=== PATIENT | male | born 1975 | race Caucasian/White ===

== ENCOUNTER 2017-05-03 12:34 | Day surgery (SDC) | payer OTHER ==
[~2017-05-03] VITALS: Ht 190.5 cm; Wt 173.3 kg
[2017-05-03] VITALS (10 sets, daily range): BP systolic 120–150; BP diastolic 60–92; PULSE 60–88; RESP 10–22; O2SAT 90–97
[~2017-05-03 12:34] MED LIST: ALBU8.5H2 INHALATION; BECL8.7A6 INHALATION; IBUP-1827 PO
[2017-05-03] MEDS ORDERED: MetoCLOpramide 5 mg/mL 2 mL Inj ONE (12:35)
[2017-05-03] MEDS ORDERED: Ondansetron 2 mg/mL 2 mL Inj ONE (12:35)
[2017-05-03] MEDS ORDERED: Dexamethasone 4 mg/mL Inj ONE (12:35)
[2017-05-03] MEDS ORDERED: fentaNYL-PF 50 mCg/mL 2 mL Inj ONE (12:35)
[2017-05-03] MEDS ORDERED: Propofol 10,000 mCg/mL 20 mL Inj ONE (12:35)
[2017-05-03] MEDS ORDERED: Lactated Ringer's 1,000 ML IV ONE (13:11)
[2017-05-03] MEDS ORDERED: HYDROcodone-APAP 7.5-325 mg Tablet PO PRN (13:20)
[2017-05-03] MEDS ORDERED: Lactated Ringer's 1,000 ML IV SCH (16:17)
[2017-05-03] MEDS ORDERED: Lactated Ringer's 500 ML IV PRN (16:17)
--- NOTE | 2017-05-03 16:19 | PCM.HPANE ---
Patient Data Surgeon Admitting Provider: Attending Provider:Shelton Tolliver DO Primary Care Physician:Pablito Ramirez MD Other Provider:Jovita García Anesthesia Reason for Visit Left Small Finger Middle Pip Joint Fracture Ht/WT & BMI Height (Feet): 6 Height (Inches): 3 Weight (Kilograms): 173.3 Body Mass Index 47.00 Allergies Coded Allergies: No Known Allergies (Unverified , 05/02/17) Past Anesthesia History Anesthesia History: Denies:: Abnormal Airway, Anesthesia Reactions, Difficult Intubation, Fam Anesthesia Reaction, Fam Malignant Hypertherm, Malignant Hyperthermia Diabetes History Hx Diabetes?: No Medications Home Meds Incl Beta Dea: No Reported Medications Beclomethasone Dipropionate (Qvar)8.7 Gm Aer.w.adap1 Puff INHALATION BID #8.7 GM 05/02/17 Albuterol HFA (Proair HFA)8.5 Gm Hfa.aer.ad2 Puffs INHALATION Q4H PRN For Shortness of Breath #1 INHALER 05/02/17 Ibuprofen 600 Mg [id number] Mg PO QID PRN For Pain Ref 0 05/02/17 History History of ENT Problems?: No HEENT History: Denies:: Abnormal Airway Cataracts Difficult Intubation Dysphagia Glaucoma Hearing Problem Sinus Problem TMJ Denture Type: None Teeth Condition: Within Normal Limits Hx of Heart Problems?: No Cardiovascular History: Denies:: AICD Abdominal Aortic Aneurism Atrial Fibrillation Cardiac Surgery Chest Pain Congestive Heart Failure Coronary Artery Disease Edema Heart Murmur Hypertension Irregular Heartbeat Pacemaker Peripheral Vascular Rheumatic Fever Thrombophlebitis Valvular Heart Disease Hx of Respiratory Problem?: Yes Respiratory History: Positive for:: Asthma Use of C-PAP Machine (BiPap) Use of Inhalers / NEBS Denies:: COPD Chest Surgery Cough Dyspnea Emphysema Hemoptysis Oxygen Administration Pneumonia Pulmonary Embolism Tuberculosis Hx Neurologic Problems?: No Neurological History: Denies:: Alzheimer's Disease CVA Dementia Dizziness Headaches Multiple Sclerosis Parkinson's Disease Peripheral Neuropathy Seizures TIA Hx of GI Problems?: No Gastrointestinal History: Denies:: Cirrhosis Diverticulitis Gall Bladder Disease Gastroesphageal Reflux Gastrointestinal Bleeding Heartburn Hepatitis Hiatal Hernia Liver Disease Rectal Bleeding Hx of Problems?: No Genitourinary History: Denies:: HX of Hemodialysis Kidney Stones Urinary Tract Infection HX of Peritoneal Dialysis: No Male Hx: Denies:: Prostate Problems Scrotal Mass Testicular Surgery Skin History: Denies:: History Skin Disorders? Pressure Ulcers Hx Musculoskeletal Problems?: Yes Musculoskeletal History: Positive for:: Musculoskeletal Trauma (left small finger fx current admission problem) Denies:: Back Injury Degenerative Joint Fibromyalgia Joint Replacement Myasthenia Gravis Osteoarthritis Rheumatoid Arthritis Systemic Lupus Hx of Psycho/Social Problems?: No Psycho Social History: Denies:: Anxiety Bipolar Disorder Hx Depression Suicide Attempt Hx Surgeries?: Yes (knee arthroscopy) Hx Any Other Health Problems?: Yes Other History: Denies:: Cancer Endocrine Disease Hospitalization Thyroid Disease History Blood Transfusions: Denies:: Accept Blood Products? Blood Transfuse Reaction Blood Transfusions Hx Diabetes: No Stop/Bang S-Snoring: Do You Snore Loudly: No T-Tired: feel tired, fatigued: No O-Obsered: Observed not breath: No P-Blood Pressure: treated: No B- Body Mass Index > 35 kg/m2: Yes A- Age over 50: No N- Neck Large Circumference: Yes G- Gender Male: Yes ALMA Total Score: 3 Risk Assessment Category Category 1A: Patient has history of documented sleep apnea, and HAS NOT received any narcotic, sedative or anesthesia administration during this stay. Category 1B: Patient has history of documented sleep apnea, and HAS received any narcotic , sedative or anesthesia administration during this stay Category 2: Patient has SUSPECTED Obstructive Sleep Apnea, and HAS received any narcotic , sedative or anesthesia administration during this stay. Category 3: Patient has SUSPECTED Obstructive Sleep Apnea and HAS NOT received narcotic, sedative or anesthesia administration during this stay. Category 4: Outpatient in Procedural Areas with known sleep apnea or who screen positive for High Risk via the STOP/BANG questionnaire. Exam Exam Vital Signs Vital Signs Date Time Temp Pulse Resp B/P Pulse Ox O2 Delivery O2 Flow Rate FiO2 05/03/17 13:20 36.2 60 18 121/69 94 Room Air 05/03/17 13:15 CPAP/BIPAP General Appearance: Alert, Oriented X3, Cooperative, No Acute Distress HEENT/AIRWAY: MP 2, Neck Movement (FROM, large neck circumference), Mouth Opening (3 FBMO) Lungs: Clear to Auscultation, Normal Air Movement Heart: Exam Unremarkable, Regular Rate/Rhythm, No Murmurs/Rubs/Gallops Meds/Labs/Diagnostics Admission Meds Current Medications Lactated Ringer's (Lr) 1,000 ml @ ud STK-MED ONCE IV Last administered on t 13:11; Start 05/03/17 at 13:11; Stop 05/03/17 at 13:12; Status DC Plan Impression Patient chart reviewed, patient interviewed and anesthestic plan with risks, benefits, and alternatives discussed, and informed consent obtained. NPO per Anesth. Guidelines: Yes ASA Physical Status: ASA3 Severe Disease (BMI 47) Anesthetic Plan: GA Bene/Risks/Altern/Consents: Yes HP Complete Prior to Induction: Yes Jamel Perkins MD May 03, 2017 14:52
[2017-05-03] MEDS ORDERED: Ondansetron 2 mg/mL 2 mL Inj IVPUSH PRN (16:20)
[2017-05-03] MEDS ORDERED: Atropine 0.4 mg/mL Inj IVPUSH PRN (16:20)
[2017-05-03] MEDS ORDERED: EPHEDrine Sulfate 50 mg/mL Inj IVPUSH PRN (16:20)
[2017-05-03] MEDS ORDERED: Labetalol 5 mg/mL 4 mL Inj IV PRN (16:20)
[2017-05-03] MEDS ORDERED: Phenylephrine 10,000 mCg/mL Inj IVPUSH PRN (16:20)
[2017-05-03] MEDS ORDERED: HYDROmorphone 1 mg/mL Inj IVPUSH PRN (16:20)
[2017-05-03] MEDS ORDERED: MetoCLOpramide 5 mg/mL 2 mL Inj IVPUSH PRN (16:20)
[2017-05-03] MEDS ORDERED: Lidocaine 1%-Epi 1:100,000 20 mL Inj INFILTRATE ONE (16:23)
--- NOTE | 2017-05-03 17:51 | PCM.ANEP1 ---
Post Anesthesia PACU Phase 1 Assessment Vital Signs Vital Signs Date Time Temp Pulse Resp B/P Pulse Ox O2 Delivery O2 Flow Rate FiO2 05/03/17 17:47 37.4 79 22 120/60 95 Simple Mask 10 05/03/17 17:39 36.9 88 19 150/92 94 Simple Mask 10 05/03/17 13:20 36.2 60 18 121/69 94 Room Air 05/03/17 13:15 CPAP/BIPAP Anesthetic Administered: GA Level of Alertness: Awake, talking SOLIMAN's with Equal Strength: Yes Pain: No Nausea or Vomiting: No CV Function & Hydration Stable: No Airway Device: Oxygen Delivery: Simple Mask Lungs: Clear to Auscultation, Normal Air Movement Dermatome Level: Full Sensation PACU Phase 2 Assessment Complications: No Follow up Care: N/A Patient Instructions Provided: N/A Jamel Perkins MD May 03, 2017 17:51
[2017-05-03] MEDS: fentaNYL-PF 50 mCg/mL 2 mL Inj IVPUSH PRN ×2 (17:58→18:23)
--- NOTE | 2017-05-06 08:52 | OP ---
[address] [id number] OPERATIVE REPORT PATIENT: CELINE CLEARY : 1975 MR#: [id number] ADMIT: 05/03/2017 JOB ID: [id number] DATE OF SURGERY: 05/03/2017 PREOPERATIVE DIAGNOSIS(ES): Left small finger proximal interphalangeal fracture dislocation. POSTOPERATIVE DIAGNOSIS(ES): Left small finger proximal interphalangeal fracture dislocation. PROCEDURE: Open reduction, internal fixation of the left middle phalanx articular fracture involving the proximal interphalangeal joint. SURGEON: Shelton Tolliver D.O. ANESTHESIA: General. HISTORY: The patient is a pleasant 41-year-old male that tripped over his goose and landed onto his left hand. He sustained a left small finger proximal interphalangeal joint fracture dislocation involving the middle phalanx. This happened two and half weeks prior to him seeking any treatment and three and half weeks before he saw me in the office. Discussed with the patient at that time the option to proceed with open reduction, internal fixation. He understood the risks include, but are not limited to, neurovascular injury, tendon injury, infection, failure of fixation, stiffness, persistent pain, all of which may require further intervention. The patient all questions answered. Consent was signed and placed in the chart. PROCEDURE IN DETAIL: The patient was brought to the operative suite and placed supine on the operating room table. Surgical time-out performed. Everyone in the room was in agreement. After appropriate anesthesia was obtained, a left upper arm tourniquet was applied, and the left upper extremity prepped and draped in a sterile fashion. Left upper extremity then exsanguinated and tourniquet inflated to 250 mmHg. A curvilinear incision was made overlying the dorsal aspect of the small finger starting at the level of the middle phalanx neck and extending just proximal to the proximal interphalangeal joint. Dissection was carried down to the extensor tendon. Extensor tendon split was performed. The fracture site was identified. An irrigation and debridement of the fibrous healing of the fracture was performed followed by direct manual reduction. Reduction was easily able to reduce the subacute fracture. The reduction was verified under fluoroscopy. This was followed by application of two 1.5 mm Synthes cortical screws as lag screws. Excellent fixation was achieved. An additional 0.035 inch K-wire was advanced across the base of the fracture for additional fixation. The PIP joint was extremely stiff with passive range of motion. This was manipulated and allowed for an extension to flexion arc of 0-90 degrees. Copious irrigation was then performed. The K-wire was then bent outside the skin and cut short. The extensor tendon split repaired with 5-0 nylon in a [id number] fashion followed by closure of the skin with 5-0 nylon and an interrupted configuration. Patient was then placed into a well-padded well-molded ulnar gutter splint. ESTIMATED BLOOD LOSS: Less than 1 cc. COMPLICATIONS: None. DISPOSITION: The patient tolerated the procedure well. Anesthesia was reversed. The patient was transferred back to recovery. IMPLANTS: Two 1.5 mm Synthes cortical screws and lag screws and additional 0.035 inch K-wire for fixation. POSTOPERATIVE PLAN: The patient will follow up on Saturday or Saturday with occupational therapy to be transitioned into a hand based ulnar gutter brace and to start immediately with range of motion exercises. He is to stay in that brace at all times except for when working on exercises with therapy and at home several times throughout the day. He is to limit any lifting, pushing, or pulling with the left hand. He is to follow up in the office in two weeks. We will repeat x-rays of the left small finger at that time out of the brace, remove the sutures, and progress him further with therapy. ANDREW
== END 2017-05-03 23:59 | disposition home or self-care (01) ==
LOC: SAS 12:34
PROVIDERS: ATTEND Orthopaedic Surgery
DX: S62.617A Displaced fracture of proximal phalanx of left little finger, initial encounter for closed fracture (principal); G47.33 Obstructive sleep apnea (adult) (pediatric); J45.909 Unspecified asthma, uncomplicated; E66.01 Morbid (severe) obesity due to excess calories; W01.0XXA Fall on same level from slipping, tripping and stumbling without subsequent striking against object, initial encounter; Y93.89 Activity, other specified; Y92.9 Unspecified place or not applicable; Y99.8 Other external cause status; Z87.891 Personal history of nicotine dependence; Z68.42 Body mass index [BMI] 45.0-49.9, adult
CPT/HCPCS: 26746; C1713; J1100; J1885; J2405; J2765; J3010; J7120